=== PATIENT | male | born 1995 | race Caucasian/White ===

== ENCOUNTER 2017-04-18 11:36 | Emergency (ER) | payer OTHER ==
[2017-04-18 11:40] VITALS: RESP 16; TEMP 98.1; O2SAT 97
--- NOTE | 2017-04-18 12:07 | EDPHY ---
HPI/HX/ROS/PE/MDM Narrative: CHIEF COMPLAINT: Right foot pain HPI: The patient is a 21-year-old male presenting with right foot and ankle pain from an injury that occurred last night. The patient was jumping over a fence and twisted his ankle on the curb when he landed. He was unable to bear weight on the foot initially after injury. Patient used crutches to ambulate today. He has pain and swelling to the ankle and foot. No previous surgery on the foot. REVIEW OF SYSTEMS: Gen: No fever, no chills Extremity: Right ankle pain PMH: Denies. SOCIAL HISTORY: Lives in [place]. Mother at bedside. PHYSICAL EXAM: General: Patient is alert, in no acute distress. Extremities: Tenderness lateral malleolus and lateral mid foot with ecchymosis. No Lisfranc tenderness. Neuro: Oriented x3. Normal motor function. Normal sensory function. ED Course: Patient was placed in a Barron boot and given crutches. Radiology read: X-ray of foot and ankle shows small avulsion off cuboid. I went in to room to explain to patient but he has apparently already left the ED. I did not officially discharge him yet. This is small avulsion that is likely clinically insignificant. Patient already has instructions to follow-up with orthopedics. I instructed Shaan, the medical equipment technician to call the patient at home and inform him of this result, and to return if any issues or questions. - Data Points Imaging Results: Imaging Impressions Ankle X-Ray 04/18/17 11:42 Impression: No acute osseous findings. Foot X-Ray 04/18/17 11:47 Impression: Nondisplaced avulsion fracture of the cuboid. Findings discussed with Luis M Restrepo MD 04/18/2017 at 12:51. Imaging: Discussed imaging studies w/ guest services manager Radiologist, I viewed and interpreted images myself General Time Seen by Provider: 04/18/17 11:42 Initial Vital Signs: Initial Vital Signs Temperature (C) 36.7 C 04/18/17 11:37 Heart Rate 78 04/18/17 11:37 Respiratory Rate 16 04/18/17 11:37 Blood Pressure 139/82 H 04/18/17 11:37 O2 Sat (%) 97 04/18/17 11:37 O2 Delivery Mode Room Air Allergies/Adverse Reactions: Penicillins Allergy (Unknown, Verified 04/18/17 11:40) as child Home Medications: Medication Instructions Recorded NK [No Known Home Meds] 04/18/17 Departure - Departure Disposition: Home, Routine, Self-Care Clinical Impression: Cuboid fracture Condition: Good Instructions: Foot Fracture in Adults (ED) Additional Instructions: Rest, Ice, and Elevate the ankle when possible. I recommend 600mg Ibuprofen every 6-8 hours as needed for pain and swelling. Use crutches as needed, bear weight as tolerated. Referrals: Ezekiel Tapia [Primary Care Provider] - As per Instructions Report Scribed for: Luis M Restrepo Report Scribed by: Belkis Mary Date of Report: 04/18/17 Time of Report: 12:07 Physician Review and Approval Statement: Portions of this note were transcribed by a medical billing coder. I personally performed the history, physical exam, and medical decision-making; and confirmed the accuracy of the information in the transcribed note.
[2017-04-18 12:59] VITALS: BP 140/85; PULSE 71
== END 2017-04-18 13:00 | disposition home or self-care (01) ==
DX: S92.214A Nondisplaced fracture of cuboid bone of right foot, initial encounter for closed fracture (principal); X58.XXXA Exposure to other specified factors, initial encounter; Y99.8 Other external cause status; Y93.39 Activity, other involving climbing, rappelling and jumping off
CPT/HCPCS: L4386